=== PATIENT | female | born 1940 | race Caucasian/White ===

== ENCOUNTER 2023-05-17 23:55 | Emergency (ER) | payer SELFPAY | END 2023-05-18 00:20 | disposition left against medical advice (07) | LOC: ED 23:55 | DX: Z53.21 Procedure and treatment not carried out due to patient leaving prior to being seen by health care provider (principal) ==

== ENCOUNTER 2024-03-26 14:18 | Emergency (ER) | payer MEDICARE ==
[2024-03-26 15:15] LABS: Appearance Clear (Clear); Bacteria None Seen /HPF (None Seen); Bilirubin Negative (Negative); Blood Negative (Negative); Epithelial Cells Few /HPF (None Seen); Glucose, Urine Negative (Negative); Hyaline Casts NONE SEEN /LPF (0-2); Ketones Negative (Negative); Leukocyte Esterase Negative (Negative); Nitrite Negative (Negative); Protein,Urine Dip Negative (Negative); RBC 0-2 /HPF (0-5); Urobilinogen 0.2 mg/dL (0.2); WBC 0-2 /HPF (0-5)
[2024-03-26 15:19] LABS: ADD URINE CULTURE? NO (NO)
[2024-03-26 15:20] VITALS: PULSE 87; TEMP 97.1; O2SAT 99
--- NOTE | 2024-03-26 15:33 | ERPHSYRPT ---
<JUAN,DAMIÁN Vinson - Last Filed: 03/26/24 19:15> - History of Present Illness Historian: patient, family Exam Limitations: no limitations Patient Subjective Stated Complaint: Pt c/o of kaylene lower abdominal pain that radiates down both legs Triage Nursing Assessment: Pt brought to the ER by self, hypertensive, rates pain as 6/10, has a "burning" sensation in her kaylene lower abdomen and it radiates down her legs, denies pain with palpatation, denies SOB, denies injury, doesn't appear to be in any distress Timing/Duration: day(s) Activities at Onset: sleep Quality: burning Abdominal Pain Onset Location: suprapubic Pain Radiation: other (legs) Severity of Pain-Max: moderate Severity of Pain-Current: moderate Modifying Factors: Improves With: nothing Associated Symptoms: denies symptoms Previous symptoms: same symptoms as today Hx Influenza Vaccination/Date Given: Yes Hx Pneumococcal Vaccination/Date Given: Yes <REGGIE PETERSON - Last Filed: 03/27/24 06:42> - History of Present Illness Time Seen by Provider: 03/26/24 15:28 Physician History: pt has burning lower abd pain rad down legs awakening at night. No hx trauma. Slight general tenderness abd. No CP No sobreath. No dizziness. No peritoneal signs or masses. discussed risks/benefits of Ct Abd , CBC, trop, EKG, Lipase Josephine, CMP UA with pt and she wishes to proceed and these are ordered, results were discussed. (REGGIE PETERSON) Allergies/Adverse Reactions: codeine Allergy (Verified 03/26/24 15:21) morphine Allergy (Verified 03/26/24 15:21) propoxyphene [From Darvon] Allergy (Verified 03/26/24 15:21) Home Medications: Atorvastatin Calcium 40 mg PO DAILY 03/26/24 [History] Famotidine 40 mg PO DAILY 03/26/24 [History] Losartan Potassium 50 mg [Cozaar 50 MG] 50 mg PO DAILY 03/26/24 [History] hydroCHLOROthiazide [Hydrochlorothiazide] 12.5 mg PO DAILY 03/26/24 [History] Travel Risk - International Travel Have you traveled outside of the country in past 3 weeks: No - Emerging Infectious Disease Are you exhibiting symptoms associated with any current EIDs: Yes Symptoms: Abdominal Pain <REGGIE PETERSON - Last Filed: 03/27/24 06:42> - Review of Systems Constitutional: No Fever, No Chills Eyes: No Symptoms Ears, Nose, & Throat: No Symptoms Respiratory: No Cough, No Dyspnea Cardiac: No Chest Pain, No Edema, No Syncope Abdominal/Gastrointestinal: Abdominal Pain, No Nausea, No Vomiting, No Diarrhea Genitourinary Symptoms: No Dysuria Musculoskeletal: No Back Pain, No Neck Pain Skin: No Rash Neurological: No Dizziness, No Focal Weakness, No Sensory Changes Psychological: No Symptoms Endocrine: No Symptoms Hematologic/Lymphatic: No Symptoms Immunological/Allergic: No Symptoms All Other Systems: Reviewed and Negative <REGGIE PETERSON - Last Filed: 03/27/24 06:42> - Past Medical History Pertinent Past Medical History: Yes Cardiac History: Hypertension History: Other Other Medical History: chronic vertigo, frequent bladder infections - Past Surgical History Past Surgical History: Yes Female Surgical History: Hysterectomy, Dilation & Curettage, Tubal Ligation - Social History Smoking Status: Never smoker Exposure to second hand smoke: No Drug Use: none - Social Determinants of Health Will the patient participate in the screening: Yes Do you worry about a steady place to live?: No Do you have any problems with any of the following?: No known problems In the past 12 months,have you had to go without utilities?: No Transportation Issues: No Has anyone in your support network made you feel unsafe?: No Have you or anyone in your house had to go without enough: No <REGGIE PETERSON - Last Filed: 03/27/24 06:42> - Physical Exam General Appearance: no apparent distress, alert Eye Exam: PERRL/EOMI, eyes nml inspection Ears, Nose, Throat Exam: normal ENT inspection, pharynx normal, moist mucous membranes Neck Exam: normal inspection, non-tender, supple, full range of motion Respiratory Exam: normal breath sounds, lungs clear, No respiratory distress Cardiovascular Exam: regular rate/rhythm, normal heart sounds Gastrointestinal/Abdomen Exam: soft, No tenderness, No mass Pelvic Exam: deferred Rectal Exam: deferred Back Exam: normal inspection, normal range of motion, No CVA tenderness, No vertebral tenderness Extremity Exam: normal inspection, normal range of motion, pelvis stable Neurologic Exam: alert, oriented x 3, cooperative, normal mood/affect, nml cerebellar function, sensation nml, No motor deficits Skin Exam: normal color, warm, dry SpO2 Interpretation: normal SpO2: 99 O2 Delivery: Room Air <REGGIE PETERSON - Last Filed: 03/27/24 06:42> - Nursing Vital Signs Nursing Vital Signs: Initial Vital Signs Temperature 97.1 F 03/26/24 15:07 Pulse Rate 87 03/26/24 15:07 Blood Pressure 154/78 03/26/24 15:07 O2 Sat by Pulse Oximetry 99 03/26/24 15:07 Pain Scale Pain Intensity 6 - Course Nursing assessment & vital signs reviewed: Yes EKG Interpreted by Me: Sinus Rhythm, NORMAL AXIS, Other (prolonged pr, low voltage QRS, ) - CT Exams Abdomen/Pelvis CT Interpretation: Tele-radiologist Report, Other (lung and liver nodules, diverticula, Lumbar DDD with spondylosis g 1 , ) <REGGIE PETERSON - Last Filed: 03/27/24 06:42> Ordered Tests: Active Orders 24 hr Category Date Time Status EKG-ER Only STAT Care 03/26/24 15:30 Completed IV Insertion STAT Care 03/26/24 15:30 Completed ABDOMEN AND PELVIS W/0 CONTRAS [CT] Stat Exams 03/26/24 15:30 Completed AMYLASE Stat Lab 03/26/24 15:40 Completed CBC W DIFF Stat Lab 03/26/24 15:40 Completed CMP Stat Lab 03/26/24 15:40 Completed LIPASE Stat Lab 03/26/24 15:40 Completed Lactic Acid Stat Lab 03/26/24 15:40 Completed TROPONIN Stat Lab 03/26/24 15:40 Completed TROPONIN Stat Lab 03/26/24 18:35 Completed UA W/RFX UR CULTURE Stat Lab 03/26/24 15:03 Completed Medication Summary Discontinued Medications Generic Name Dose Route Start Last Admin Trade Name Freq PRN Reason Stop Dose Admin Famotidine 20 mg 03/26/24 15:30 03/26/24 15:58 Famotidine 20 Mg/1 Vial IV 03/26/24 15:31 20 mg STAT ONE Administration Famotidine Confirm 03/26/24 15:49 Famotidine 20 Mg/1 Vial Administered 03/26/24 15:50 Dose 20 mg IV .STK-MED ONE Sodium Chloride 1,000 mls @ 100 mls/hr 03/26/24 15:30 03/26/24 15:58 Sodium Chloride 0.9% 1000 Ml IV 04/25/24 15:29 100 mls/hr .Q10H GARCIA Administration Sodium Chloride Confirm 03/26/24 15:49 Sodium Chloride 0.9% 1000 Ml Administered 03/26/24 15:50 Dose 1,000 mls @ ud .ROUTE .STK-MED ONE Ondansetron HCl 4 mg 03/26/24 15:30 03/26/24 15:58 Ondansetron Hcl 4 Mg/2 Ml Vial IV 03/26/24 15:31 4 mg STAT ONE Administration Ondansetron HCl Confirm 03/26/24 15:49 Ondansetron Hcl 4 Mg/2 Ml Vial Administered 03/26/24 15:50 Dose 4 mg .ROUTE .STK-MED ONE Pantoprazole Sodium 40 mg 03/26/24 15:30 03/26/24 15:58 Pantoprazole 40 Mg Vial IV 03/26/24 15:31 40 mg STAT ONE Administration Pantoprazole Sodium Confirm 03/26/24 15:49 Pantoprazole 40 Mg Vial Administered 03/26/24 15:50 Dose 40 mg IV .STK-MED ONE Lab/Rad Data: Laboratory Result Diagrams 03/26/24 15:40 03/26/24 15:40 Laboratory Results 03/26/24 03/26/24 03/26/24 Range/Units 18:35 15:40 15:40 WBC (3.98-10.04) x10^3/uL RBC (3.93-5.22) x10^6/uL Hgb (11.2-15.7) g/dL Hct (34.1-44.9) % MCV (79.4-94.8) fL MCH (25.6-32.2) pg MCHC (32.2-35.5) g/dL RDW (11.7-14.4) % Plt Count (182-369) x10^3/uL MPV (9.4-12.3) fL Gran % (34.0-71.1) % Immature Gran % (Auto) (0.001-0.429) % Nucleat RBC Rel Count (0.00-0.2) % Eos # (Auto) (0.04-0.36) x10^3/uL Immature Gran # (Auto) (0.001-0.031) x10^3u/L Absolute Lymphs (auto) (1.18-3.74) x10^3/uL Absolute Monos (auto) (0.24-0.86) x10^3/uL Absolute Nucleated RBC (0.00-0.012) x10^3u/L Lymphocytes % (19.3-51.7) % Monocytes % (4.7-12.5) % Eosinophils % (0.7-5.8) % Basophils % (0.1-1.2) % Absolute Granulocytes (1.56-6.13) x10^3/uL Basophils # (0.01-0.08) x10^3/uL Sodium 137 (135-145) mmol/L Potassium 4.4 (3.5-5.1) mmol/L Chloride 104 (98-107) mmol/L Carbon Dioxide 26 (22-30) mmol/L Anion Gap 11.2 (5-15) MEQ/L BUN 20 H (7-17) mg/dL Creatinine 1.14 H (0.52-1.04) mg/dL Estimated GFR 47.2 ML/MIN Glucose 96 (74-106) mg/dL Lactic Acid 0.9 (0.4-2.0) Calcium 8.8 (8.4-10.2) mg/dL Total Bilirubin 0.50 (0.2-1.3) mg/dL AST 33 (14-36) U/L ALT 24 (0-35) U/L Alkaline Phosphatase 62 (38-126) U/L Troponin I 0.024 0.021 (0.000-0.033) ng/mL Serum Total Protein 7.1 (6.3-8.2) g/dL Albumin 4.1 (3.5-5.0) g/dL Amylase 71 (30-110) U/L Lipase 98 (23-300) U/L Urine Color (Yellow) Urine Appearance (Clear) Urine pH (4.6-8.0) Ur Specific [place] (1.005-1.030) Urine Protein (Negative) Urine Glucose (UA) (Negative) mg/dL Urine Ketones (Negative) Urine Blood (Negative) Urine Nitrite (Negative) Urine Bilirubin (Negative) Urine Urobilinogen (0.2) mg/dL Ur Leukocyte Esterase (Negative) U Hyaline Cast (Auto) (0-2) /LPF Urine Microscopic RBC (0-5) /HPF Urine Microscopic WBC (0-5) /HPF Ur Epithelial Cells (None Seen) /HPF Urine Bacteria (None Seen) /HPF Urine Culture Reflexed (NO) 03/26/24 03/26/24 Range/Units 15:40 15:03 WBC 6.5 (3.98-10.04) x10^3/uL RBC 4.05 (3.93-5.22) x10^6/uL Hgb 12.2 (11.2-15.7) g/dL Hct 36.6 (34.1-44.9) % MCV 90.4 (79.4-94.8) fL MCH 30.1 (25.6-32.2) pg MCHC 33.3 (32.2-35.5) g/dL RDW 13.0 (11.7-14.4) % Plt Count 155 L (182-369) x10^3/uL MPV 10.3 (9.4-12.3) fL Gran % 61.8 (34.0-71.1) % Immature Gran % (Auto) 0.3 (0.001-0.429) % Nucleat RBC Rel Count 0.0 (0.00-0.2) % Eos # (Auto) 0.14 (0.04-0.36) x10^3/uL Immature Gran # (Auto) 0.02 (0.001-0.031) x10^3u/L Absolute Lymphs (auto) 1.76 (1.18-3.74) x10^3/uL Absolute Monos (auto) 0.54 (0.24-0.86) x10^3/uL Absolute Nucleated RBC 0.00 (0.00-0.012) x10^3u/L Lymphocytes % 26.9 (19.3-51.7) % Monocytes % 8.3 (4.7-12.5) % Eosinophils % 2.1 (0.7-5.8) % Basophils % 0.6 (0.1-1.2) % Absolute Granulocytes 4.04 (1.56-6.13) x10^3/uL Basophils # 0.04 (0.01-0.08) x10^3/uL Sodium (135-145) mmol/L Potassium (3.5-5.1) mmol/L Chloride (98-107) mmol/L Carbon Dioxide (22-30) mmol/L Anion Gap (5-15) MEQ/L BUN (7-17) mg/dL Creatinine (0.52-1.04) mg/dL Estimated GFR ML/MIN Glucose (74-106) mg/dL Lactic Acid (0.4-2.0) Calcium (8.4-10.2) mg/dL Total Bilirubin (0.2-1.3) mg/dL AST (14-36) U/L ALT (0-35) U/L Alkaline Phosphatase (38-126) U/L Troponin I (0.000-0.033) ng/mL Serum Total Protein (6.3-8.2) g/dL Albumin (3.5-5.0) g/dL Amylase (30-110) U/L Lipase (23-300) U/L Urine Color Yellow (Yellow) Urine Appearance Clear (Clear) Urine pH 6.0 (4.6-8.0) Ur Specific [place] 1.010 (1.005-1.030) Urine Protein Negative (Negative) Urine Glucose (UA) Negative (Negative) mg/dL Urine Ketones Negative (Negative) Urine Blood Negative (Negative) Urine Nitrite Negative (Negative) Urine Bilirubin Negative (Negative) Urine Urobilinogen 0.2 (0.2) mg/dL Ur Leukocyte Esterase Negative (Negative) U Hyaline Cast (Auto) NONE SEEN (0-2) /LPF Urine Microscopic RBC 0-2 (0-5) /HPF Urine Microscopic WBC 0-2 (0-5) /HPF Ur Epithelial Cells Few (None Seen) /HPF Urine Bacteria None Seen (None Seen) /HPF Urine Culture Reflexed NO (NO) <DAMIÁN MORENO - Last Filed: 03/26/24 19:15> - Progress Progress: improved, re-examined Counseled pt/family regarding: lab results, diagnosis, need for follow-up, rad results <REGGIE PETERSON - Last Filed: 03/27/24 06:42> - Progress Progress Note: Patient is wanting to go home. Dr. Peterson had ordered a repeat troponin prior to shift change. Patient has no chest pain or did not present with chest pain or any other signs concerning of ACS. Patient reports that she had a UTI and wanted to get that checked which came back normal. I did have a discussion with the patient that if the lab does come back abnormal after we discharged her we will call and advise her to return if need be and she is agreeable to this plan. 03/26/24 19:16 (DAMIÁN MORENO) 03/26/24 18:36 the patient is advised that we hae not determined the cause of the pain and that additional pathology cardiac/vascular, or other could be undetected and developing. she prefers outpt f/u rather than further w/u in hospital and has the capacity to make this choice. discussed the troponin finding and that that could represent cardiac and she agrees to stay to check one more but if not increasing she would like to go and f/u outp and has the capacity to make this choice. . 03/26/24 18:50 03/26/24 18:51 Pt is turned over the Dr. moreno after discussion of findings results and pending lab and pts wishes and intro to pt , for final dispostion and pt discussion when resulted. (REGGIE PETERSON) Medical Desision Making - Independent Historian Additional History obtained from: Family - Discussion of managment Reviewed:: Test results, Need for additional workup Agreed on:: Treatment plan, need for follow-up - Diagnostic Testing Diagnostic test were ordered, analyzed, and reviewed by me: Yes - Risk of complications The pt has a mod risk of morbidity or mortality based on: Need for prescription drug management The pt has a high risk of morbidity or mortality based on: Decision regarding hospitilization or escalation of hosp level of care <REGGIE PETERSON - Last Filed: 03/27/24 06:42> - Departure Departure Disposition: Home Critical Care Time: No <DAMIÁN MORENO - Last Filed: 03/26/24 19:15> - Departure Critical Care Time: No <REGGIE PETERSON - Last Filed: 03/27/24 06:42> - Departure Clinical Impression: Abdominal pain of unknown etiology, liver and lung nodules Condition: Good Referrals: DOCTOR,NO FAMILY [Primary Care Provider] - Follow up/PCP as directed Instructions: Abdominal Pain, Adult ED Additional Instructions: followup with your Dr. for the liver and lung nodules, and slight increase of troponin, hiatal hernia, Lumbar DDD and elevated blood pressure. We have not determined a cause for your pain, and although it could be from the lumbar disc, there may be other conditions developing such as vascular, cardiac, or other - so followup is important. return meantime if not improving, vomiting, chest pain, short of breath, fever, diziness or other concerns.
[2024-03-26] MEDS ORDERED: Pepcid 20 MG VIAL IV ONE (15:49)
[2024-03-26] MEDS ORDERED: PROTONIX 40 MG IV IV ONE (15:49)
[2024-03-26] MEDS ORDERED: Zofran 4 MG/2 ML VIAL ONE (15:49)
[2024-03-26] MEDS ORDERED: Sodium Chloride 0.9% 1000 ML 1,000 ML ONE (15:49)
[2024-03-26 15:52] LABS: Absolute Neutrophil Ct (ANC) 4.04 x10^3/uL (1.56-6.13); BASOPHIL % 0.6 % (0.1-1.2); Basophil (Absolute #) 0.04 x10^3/uL (0.01-0.08); Eosinophil % 2.1 % (0.7-5.8); Eosinophil (Absolute #) 0.14 x10^3/uL (0.04-0.36); Hematocrit 36.6 % (34.1-44.9); Hemoglobin 12.2 g/dL (11.2-15.7); IMMATURE GRAN # 0.02 x10^3u/L (0.001-0.031); IMMATURE GRAN % 0.3 % (0.001-0.429); Lymphocyte (Absolute #) 1.76 x10^3/uL (1.18-3.74); Lymphocytes % 26.9 % (19.3-51.7); Mean Cell Volume 90.4 fL (79.4-94.8); Mean Corpuscular Hemoglobin 30.1 pg (25.6-32.2); Mean Corpuscular Hgb Concent. 33.3 g/dL (32.2-35.5); Mean Platelet Volume 10.3 fL (9.4-12.3); Monocyte (Absolute #) 0.54 x10^3/uL (0.24-0.86); Monocytes % 8.3 % (4.7-12.5); Neutrophil % 61.8 % (34.0-71.1); Platelet Count 155 x10^3/uL (182-369); Red Blood Count 4.05 x10^6/uL (3.93-5.22); White Blood Count 6.5 x10^3/uL (3.98-10.04)
[2024-03-26] MEDS: Zofran 4 MG/2 ML VIAL IV ONE (15:58)
[2024-03-26] MEDS: Sodium Chloride 0.9% 1000 ML 1,000 ML IV SCH (15:58)
[2024-03-26] MEDS: Pepcid 20 MG VIAL IV ONE (15:58)
[2024-03-26] MEDS: PROTONIX 40 MG IV IV ONE (15:58)
[2024-03-26 16:14] LABS: ALBUMIN 4.1 g/dL (3.5-5.0); ANION GAP 11.2 MEQ/L (5-15); BILIRUBIN,TOTAL 0.5 mg/dL (0.2-1.3); Calcium 8.8 mg/dL (8.4-10.2); Creatinine 1 1.14 mg/dL (0.52-1.04); EST GLOMERULAR FILTRATION RATE 47.2 ML/MIN; Potassium 4.4 mmol/L (3.5-5.1); TROPONIN 0.021 ng/mL (0.000-0.033); Total Protein 7.1 g/dL (6.3-8.2)
--- NOTE | 2024-03-26 17:14 | XRAY ---
CLINICAL HISTORY: abd pain COMPARISON: None. TECHNIQUE: CT scan of the abdomen and pelvis was performed without IV contrast. Coronal and sagittal reconstructive images were also obtained. One of the following dose reduction techniques was utilized for this exam.Automated exposure control, adjustment of the mA and/or kV according to patient size, and use of iterative reconstruction. FINDINGS: Abdomen: A large hiatus hernia was noted measuring 8x6.6x5.7 cm, in TR, AP, and CC dimensions respectively. The liver is normal in size. show ill defined hypodense lesion at right lobe segment Benedict measuring 2x1.7 cm. No diffuse parenchymal abnormality. The portal vein, intrahepatic biliary radicals and the bile ducts are normal. The spleen, pancreas, adrenal glands are unremarkable. The kidneys are unremarkable. They are normal in size and shape. No calculi or hydronephrosis. The gallbladder is normal. No pericholecystic collection or radio-dense calculi in the gall bladder. The ascending colon, the transverse colon, the descending colon, visualized small bowel loops are unremarkable. Unremarkable appendix. There are multiple non-complicated sigmoid diverticula, few noted at the descending colon. There is no evidence of significant enlargement of the mesenteric or retroperitoneal lymph nodes. Pelvis: The urinary bladder is unremarkable. The rectum is unremarkable. The prostate is unremarkable. No evidence of pelvic lymphadenopathy. The osseous structures in the pelvis, lower rib cage and lumbar spine show no abnormality, apart from grade I spondylolisthesis of L4 over L5. No lytic or sclerotic bone lesions. Few subpleural nodules noted at lung bases. IMPRESSION: 1. A large hiatus hernia. 2. Non-complicated descending and sigmoid diverticular disease. 3. Spondylolisthesis of L4 over L5. Electronically Signed by: Jennifer Bustamante MD. (03/26/2024 17:10:56 EDT)
[2024-03-26 17:47] VITALS: BP 143/107
== END 2024-03-26 19:29 | disposition home or self-care (01) ==
LOC: ED 14:18
DX: R10.30 Lower abdominal pain, unspecified (principal); R91.8 Other nonspecific abnormal finding of lung field; K76.9 Liver disease, unspecified; I10 Essential (primary) hypertension; Z79.899 Other long term (current) drug therapy
CPT/HCPCS: 36415; 74176; 80053; 81001; 82150; 83605; 83690; 84484; 85025; 93005; 96374; 96375; 99284; J2405